=== PATIENT | female | born 1995 | race Two or more races ===

== ENCOUNTER 2019-12-06 15:33 | Emergency (ER) | payer OTHER ==
[~2019-12-06] VITALS: Ht 175.3 cm; Wt 63.5 kg
[2019-12-06 15:43] VITALS: BP 109/69
--- NOTE | 2019-12-06 15:59 | NUR ---
RADIOLOGY AT BEDSIDE FOR CHEST XRAY.
== END 2019-12-06 17:11 ==
LOC: ER 15:38
DX: Z04.89 Encounter for examination and observation for other specified reasons (principal); J06.9 Acute upper respiratory infection, unspecified
CPT/HCPCS: 71045-TC